=== PATIENT | female | born 2000 | race Caucasian/White ===

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

== ENCOUNTER 2021-08-18 12:16 | Observation (INO) | payer OTHER ==
[~2021-08-18] VITALS: Ht 157.5 cm; Wt 52.2 kg
[~2021-08-18 12:16] MED LIST: BENZ-196 PO; IBUP-1842 PO
[2021-08-18] MEDS ORDERED: PNV1TABL5 PO (12:49)
== END 2021-08-18 17:24 | disposition short-term general hospital (02) ==
LOC: MLD 12:16
PROVIDERS: ADMIT Obstetrics & Gynecology; ATTEND Obstetrics & Gynecology
DX: O46.93 Antepartum hemorrhage, unspecified, third trimester (principal); Z20.822 Contact with and (suspected) exposure to COVID-19; Z3A.34 34 weeks gestation of pregnancy
CPT/HCPCS: 59025; 76805; 87426; G0378; Q0092

== ENCOUNTER 2023-08-17 18:06 | Emergency (ER) | payer OTHER ==
[~2023-08-17] VITALS: Ht 157.5 cm; Wt 52.2 kg
[~2023-08-17 18:06] MED LIST changes: +PNV1TABL5 PO
[2023-08-17 18:18] VITALS: BP 100/70; PULSE 88; RESP 18; TEMP 98.3; O2SAT 100
== END 2023-08-17 18:57 | disposition home or self-care (01) ==
LOC: MED 18:06
DX: N93.9 Abnormal uterine and vaginal bleeding, unspecified (principal); Z79.899 Other long term (current) drug therapy
CPT/HCPCS: 81002; 81025; 99282

== ENCOUNTER 2023-12-28 19:25 | Emergency (ER) | payer OTHER ==
[~2023-12-28] VITALS: Ht 157.5 cm; Wt 59.0 kg
[2023-12-28 19:48] VITALS: BP 108/65; PULSE 111; RESP 22; TEMP 98.7; O2SAT 99
[2023-12-28] MEDS: METOCLOPRAMIDE 10 MG TAB PO ONE (20:45)
[2023-12-28] MEDS: KETOROLAC 30 MG/ML VIAL IM ONE (20:48)
[2023-12-28 21:39] LABS: FLU A ANTIGEN negative (NEGATIVE); FLU B ANTIGEN NEGATIVE (NEGATIVE)
[2023-12-28 21:52] LABS: APPEARANCE,URINE CLEAR (CLEAR); BILIRUBIN,URINE NEGATIVE (NEGATIVE); BLOOD, URINE NEGATIVE (NEGATIVE); COLOR,URINE YELLOW (YELLOW); LEUKOCYTE ESTERASE ,URINE NEGATIVE (NEGATIVE); NITRITE, URINE NEGATIVE (NEGATIVE); PROTEIN,URINE NEGATIVE (NEGATIVE); UGLUCOSE NEGATIVE (NEGATIVE); UROBILINOGEN,URINE 0.2 EU/dL (0.2 - 1)
[2023-12-28 22:00] LABS: BACTERIA,URINE OCCASSIONAL /HPF (None Seen); MUCUS,URINE 2+ /LPF (None Seen); RBC,URINE 0-5 /HPF (0-5); SQUAMOUS EPITHELIAL CELL,UR 4-10 (MOD) /LPF (0-3 (FEW)); WBC,URINE 0-5 /HPF (0-5)
== END 2023-12-28 21:30 | disposition left against medical advice (07) ==
LOC: MED 19:25
DX: G43.909 Migraine, unspecified, not intractable, without status migrainosus (principal); R10.13 Epigastric pain; Z20.822 Contact with and (suspected) exposure to COVID-19; R03.0 Elevated blood-pressure reading, without diagnosis of hypertension; Z79.899 Other long term (current) drug therapy
CPT/HCPCS: 81001; 81025; 87426; 87804; 96372; 99283; J1885; J8597; Q0163